=== PATIENT | female | born 1945 | race Caucasian/White ===

== ENCOUNTER → 2016-09-20 | Outpatient (CLI) | payer MEDICARE ==
--- NOTE | 2016-09-20 11:10 | RADIOLOGY REPORT PS360 ---
HIP LT 2-3V W/PELVIS IF PERFOR HISTORY: LT HIP PAIN ORDERING PHYSICIAN: LALITA PADILLA APRN PATIENT AGE: 71 years COMPARISON: None FINDINGS: No fracture or dislocation is evident. No significant degenerative change. No lytic or blastic change. Unremarkable soft tissues IMPRESSION: Negative left hip
== END ==
LOC: RAD 10:46
DX: M25.552 Pain in left hip (principal)